=== PATIENT | female | born 1960 | race Caucasian/White ===

== ENCOUNTER 2019-01-17 07:57 | Day surgery (SDC) | payer OTHER ==
[2019-01-17] MEDS ORDERED: Depo-Medrol 40 MG/ML IM ONE (07:58)
[2019-01-17] MEDS ORDERED: Xylocaine 1% Vial 30 ML PF IJ ONE (07:58)
[2019-01-17] MEDS ORDERED: Marcaine 0.5% SDV 10 ML IJ ONE (07:58)
--- NOTE | 2019-01-17 12:10 | XRAY ---
Indication: Left hip injection. Intraoperative fluoroscopy was provided for 15 seconds. Single digital spot image submitted for interpretation demonstrates needle tip just lateral to the greater trochanter. Small contrast injected for needle tip placement. Correlate with intraoperative findings/report.
--- NOTE | 2019-01-17 12:10 | XRAY ---
Indication: Right hip injection. Intraoperative fluoroscopy was provided for 11 seconds. Single digital spot image submitted for interpretation demonstrates needle tip just lateral to the greater trochanter. Small contrast injected for needle tip placement. Correlate with intraoperative findings/report.
--- NOTE | 2019-01-17 12:15 | XRAY ---
15 seconds fluoroscopy time in surgery for left hip injection.
--- NOTE | 2019-01-17 12:15 | XRAY ---
11 seconds fluoroscopy time in surgery for right hip injection.
== END 2019-01-17 10:43 | disposition home or self-care (01) ==
LOC: SDC-PAIN 07:57
PROVIDERS: ATTEND Psychiatry & Neurology Pain Medicine
DX: M70.62 Trochanteric bursitis, left hip (principal); M79.10 Myalgia, unspecified site; Z79.899 Other long term (current) drug therapy
CPT/HCPCS: 20611; 73501; 77002; J1030; J2001; Q9966

== ENCOUNTER 2022-12-24 06:02 | Day surgery (SDC) | payer MEDICARE, OTHER ==
[2022-12-24] MEDS ORDERED: Lactated Ringers 1,000 ML IV ONE ×2 (06:37→10:06)
[2022-12-24] MEDS ORDERED: Lactated Ringers 1,000 ML IV SCH (07:00)
[2022-12-24] MEDS ORDERED: CEFAZOLIN 2 GM-D5W BAG** 2 GM/50 ML ML IV SCH (07:00)
[2022-12-24 07:32] LABS: ANION GAP 12.8 MEQ/L (5-15); BLOOD UREA NITROGEN 16 mg/dL (7-17); CHLORIDE 107 mmol/L (98-107); Calcium 8.9 mg/dL (8.4-10.2); Carbon Dioxide 23 mmol/L (22-30); Creatinine 1 0.83 mg/dL (0.52-1.04); EST GLOMERULAR FILTRATION RATE > 60.0 ML/MIN; Glucose 138 mg/dL (74-106); Potassium 3.7 mmol/L (3.5-5.1); SODIUM 139 mmol/L (137-145)
[2022-12-24 07:36] LABS: Hematocrit 41.4 % (35-47); Hemoglobin 13.5 g/dL (12.0-16.0); Mean Cell Volume 90.6 fL (78-100); Mean Corpuscular Hemoglobin 29.5 pg (26-32); Mean Corpuscular Hgb Concent. 32.6 g/dL (32-36); Mean Platelet Volume 8.3 fL (7.5-11.0); Platelet Count 273 x10^3/uL (150-450); Red Blood Count 4.57 x10^6/uL (4.1-5.4); Red Cell Distribution Width 13.9 % (11.5-14.0); White Blood Count 6.5 x10^3/uL (4.0-10.5)
[2022-12-24] MEDS ORDERED: DIPRIVAN 200 MG/20 ML IV ONE (08:00)
[2022-12-24] MEDS ORDERED: Zofran 4 MG/2 ML VIAL ONE (08:00)
[2022-12-24] MEDS ORDERED: Decadron 4 MG INJ ONE ×2 (08:00→08:06)
[2022-12-24] MEDS ORDERED: Xylocaine-Mpf 2% 5 Ml Vial ONE (08:00)
[2022-12-24] MEDS ORDERED: Zemuron 100 MG/10 ML ONE (08:06)
[2022-12-24] MEDS ORDERED: DEXMEDETOMIDINE 80 MCG/20ML-NS IV ONE (08:06)
[2022-12-24] MEDS ORDERED: Marcaine 0.5%/Epinephrine 10 ML ONE (08:06)
[2022-12-24] MEDS ORDERED: SUBLIMAZE 100 MCG/2 ML ONE ×2 (08:08→10:52)
[2022-12-24] MEDS ORDERED: PHENYLEPHRINE HCL ONE (09:19)
[2022-12-24] MEDS ORDERED: BRIDION 200MG/2ML IV ONE (09:25)
--- NOTE | 2022-12-24 09:59 | XRAY ---
Indication: Exostosis left calcaneus and Achilles detachment repair. Intraoperative fluoroscopy provided for 59 seconds. 9 digital spot images submitted for interpretation ultimately demonstrates partial resection posterior calcaneus. Correlate with intraoperative findings/report.
--- NOTE | 2022-12-24 11:03 | XRAY ---
59 seconds fluoroscopy time in surgery for exostosis of the left calcaneus.
[2022-12-24 11:25] VITALS: O2SAT 93
[2022-12-24 12:11] VITALS: BP 156/90; PULSE 96
--- NOTE | 2022-12-24 14:53 | OP ---
SURGERY DATE/TIME: 12/24/2022 0814 PREOPERATIVE DIAGNOSES: 1) Pain left ankle. 2) Ameena's deformity left ankle. 3) Achilles tendonitis. 4) Difficulty with ambulation. 5) Diabetes mellitus. POSTOPERATIVE DIAGNOSES: 1) Pain left ankle. 2) Ameena's deformity left ankle. 3) Achilles tendonitis. 4) Difficulty with ambulation. 5) Diabetes mellitus. PROCEDURE: 1) Posterior calcaneal exostectomy. 2) Primary repair of Achilles tendon left ankle. SURGEON: Jose G Garza DPM. TECHNICAL TRAINING MANAGER: None. ANESTHESIA: General. HEMOSTASIS: Thigh tourniquet set to 300 mm of Mercury for 50 total tourniquet minutes. ESTIMATED BLOOD LOSS: Less than 10 cc. MATERIALS: 4-0 Monocryl, Suturegard, 2-0 Nylon, 3-0 Nylon, Vignesh Achilles SpeedBridge, two - 2.9 JuggerKnot with broadband and two - 4.5 mm Quattro Link. INJECTABLES: See anesthesia report for details. INDICATIONS FOR PROCEDURE: Tamera is a very pleasant 61-year-old female known to my service recently through some pain that she was having to her left heel. The patient has had this problem for a long time and has seen a number of physicians for this issue and had undergone physical therapy, stretching, immobilization, Prolotherapy injections and other conservative modalities failing every single one of them. At this time the patient has been cleared for surgical intervention and wishes to proceed. The patient understands all risks, complications and benefits of surgical intervention at this time including but not limited to infection, hematoma, seroma, possibility of delayed wound healing, delayed skin healing, nonskin healing, possibility of delayed tendon to bone interface possible rupture of the Achilles tendon and possibility of need for surgical intervention at a later date. No guarantees were provided as to the outcome. It is with that we decided to proceed. DESCRIPTION OF PROCEDURE AND FINDINGS: The patient was brought into the OR and placed on the OR table in the prone position after being sedated on the chart with general anesthesia. A well-padded thigh tourniquet was applied at this time and the tourniquet was set to 300 mm of Mercury. At this time the left lower extremity was prepped and draped in the typical sterile fashion and lowered onto the surgical field. At this time the leg was exsanguinated utilizing Esmarch and the tourniquet inflated to 300 mm of Mercury. At this time, a linear incision was made down the central aspect of the Achilles tendon this was deepened through the paratenon to the Achilles. An inverted T-incision was made over the tendon and deepened utilizing a 15 blade being careful not to plunge the blade too deep and damaging neurovascular structures at this level. At this time the Achilles tendon was resected from the posterior aspect of the calcaneus. Posterior calcaneal spur as well as Ameena's deformity were resected utilizing 31 mm sagittal saw this was carried out in a linear fashion perpendicular to the weightbearing surface of the calcaneus and angled towards the distal aspect of the tibia for the Ameena's deformity. A rasp was then used to smooth out the surface of the bone until no further appreciable spurs were identified. At this time copious amounts of sterile saline were utilized to flush the site. The tendon was then debrided of extensive calcifications. Any hard spots within the tendon were debrided, removed and handed off the field along with the retrocalcaneal bursa. This was then reapproximated to the calcaneus utilizing 2.9 JuggerKnot which were retrograded through the proximal aspect of the tendon edges and then the tendon was repaired utilizing 2-0 Vicryl. At this time the 4.5 mm Quattro Links were inserted at the distal aspect of the calcaneus and the tendon was reapproximated under tension until secure against the posterior aspect of the Achilles. At this time copious amounts of sterile saline were utilized to flush the surgical site. 4-0 Monocryl was utilized to repair the paratenon. At this time 4-0 Monocryl again was utilized to coapt the subcutaneous skin edges and a Suturegard was utilized to keep tension off of the edges of the skin. 3-0 Nylon was utilized in a horizontal mattress-type fashion to coapt the skin edges in everted-type fashion. Tourniquet was left down at this time. Dressings consisting of Betadine, Adaptic, 4x4, Kerlix and a well-padded posterior splint was applied to the patient's left leg with the foot approximately 35 to 45 degrees relative to the longitudinal aspect perpendicular of the tibia. At this time the patient was reversed from anesthesia and returned to the postoperative anesthesia care unit with vital signs stable and vascular status intact. The patient handled the anesthesia as well as the procedure without significant complication. Postoperative orders as indicated in the patient's discharge chart.
== END 2022-12-24 12:05 | disposition home or self-care (01) ==
LOC: SDC 06:02
PROVIDERS: ATTEND Podiatrist Foot & Ankle Surgery
DX: M92.62 Juvenile osteochondrosis of tarsus, left ankle (principal); E11.9 Type 2 diabetes mellitus without complications; R26.2 Difficulty in walking, not elsewhere classified; M76.62 Achilles tendinitis, left leg; M25.572 Pain in left ankle and joints of left foot
CPT/HCPCS: 27650; 28119; 36415; 73630; 76000; 76937; 80048; 85027; C1713; J0690; J1100; J2370; J2405; J2704; J3010